=== PATIENT | male | born 1990 | race Two or more races ===

== ENCOUNTER 2019-02-03 13:46 | Emergency (ER) | payer OTHER ==
[~2019-02-03] VITALS: Ht 180.3 cm; Wt 95.3 kg
[2019-02-03 13:46] VITALS: BP 162/56
--- NOTE | 2019-02-03 13:55 | NUR ---
[facility] [employer]HERE FOR OTB C/O ANXIETY SINCE LAST NIGHT. PATIENT AAO X 4. NO ACUTE DISTRESS AT THIS TIME.DENIES ANY PAIN OR DISCOMFORT. VS STABLE. PATIENT KEPT CLEAN DRY AND COMFORTABLE. WILL CONTINUE TO MONITOR
--- NOTE | 2019-02-03 14:10 | NUR ---
SEEN AND EXAMINED BY DR. PICKETT
[2019-02-03] MEDS ORDERED: LORAZEPAM 1 MG TABLET ONE (14:12)
[2019-02-03] MEDS ORDERED: IBUPROFEN 400 MG TABLET ONE (14:25)
[2019-02-03] MEDS ORDERED: IBUPROFEN 400 MG TABLET PO ONE (14:30)
[2019-02-03] MEDS ORDERED: LORAZEPAM 1 MG TABLET PO ONE (14:30)
== END 2019-02-03 14:41 ==
LOC: ER 13:47
DX: F41.9 Anxiety disorder, unspecified (principal); Z88.6 Allergy status to analgesic agent
CPT/HCPCS: 71045-TC